=== PATIENT | male | born 1970 | race African-American/Black ===

== ENCOUNTER 2021-12-22 13:41 | Inpatient (IN) | payer MEDICAID ==
[~2021-12-22] VITALS: Ht 185.4 cm; Wt 78.9 kg
--- NOTE | 2021-12-22 14:35 | NUR ---
PATIENT A/O X4. EQUAL CHEST EXPANSION WITH SOB NOTED. CURRENTLY ON RA WITH O2 SAT OF 97%. PATIENT DENIES CHEST PAIN. COMPLAINT OF BILATERAL LOWER EXT SWELLING. CALM AND COOPERATIVE AT THIS TIME. WILL CONTINUE TO MONITOR
[2021-12-22 15:53] LABS: BASOPHILS # (AUTO) 0.1 K/uL (0.0-0.2); BASOPHILS % (AUTO) 0.6 % (0.0-2.0); EOSINOPHILS % (AUTO) 1.3 % (0.0-6.0); HEMATOCRIT 46 % (39-51); HEMOGLOBIN 14.2 g/dL (13.5-17.5); LYMPHOCYTES # (AUTO) 1.6 K/uL (0.8-4.8); LYMPHOCYTES % (AUTO) 17.1 % (20.0-44.0); MEAN CORPUSCULAR HGB CONC 31 g/dl (31.0-36.0); MEAN CORPUSCULAR VOLUME 95 fL (80-96); MONOCYTES # (AUTO) 0.5 K/uL (0.1-1.30); MONOCYTES % (AUTO) 5.4 % (2.0-12.0); NEUTROPHILS % (AUTO) 75.6 % (43.0-81.0); PLATELET COUNT (AUTO) 272 K/uL (150-450); RED BLOOD CELL COUNT(AUTO) 4.83 MIL/uL (4.5-6.0); WHITE BLOOD COUNT (AUTO) 9.3 K/uL (4.3-11.0)
[2021-12-22 16:02] LABS: CALCIUM, SERUM 9.4 mg/dL (8.5-10.1); CREATININE 1.8 mg/dL (0.6-1.3); POTASSIUM 4.9 mmol/L (3.5-5.1)
[2021-12-22 16:15] LABS: ALBUMIN 3.2 g/dL (3.4-5.0); BILIRUBIN,DIRECT 0.2 mg/dL (0.0-0.2); BILIRUBIN,TOTAL 0.8 mg/dL (0.2-1.0); TOTAL PROTEIN, SERUM 7.2 g/dL (6.4-8.2)
[2021-12-22] MEDS ORDERED: FUROSEMIDE 40 MG/4 ML VIAL IV ONE (16:30)
--- NOTE | 2021-12-22 16:43 | NUR ---
IV ESTABLISHED R UPPER ARM 20G AND CONVERTED TO SALINE LOCK.
[2021-12-22] MEDS ORDERED: FUROSEMIDE 20 MG/2 ML VIAL ONE (16:45)
[2021-12-22] MEDS ORDERED: FUROSEMIDE 40 MG/4 ML VIAL ONE ×2 (16:45→16:48)
--- NOTE | 2021-12-22 16:55 | NUR ---
MEDICATED PER ERMD ORDER, PT SOTERO WELL.
[2021-12-22 17:03] LABS: BILIRUBIN,URINE NEGATIVE (NEGATIVE); COLOR,URINE YELLOW (YELLOW); LEUKOCYTE ESTERASE ,URINE NEGATIVE (NEGATIVE); NITRITE, URINE NEGATIVE (NEGATIVE); PH,URINE 6.5 (5.0-8.0); PROTEIN,URINE 100 mg/dl (NEGATIVE); UGLUCOSE NEGATIVE (NEGATIVE)
[2021-12-22] MEDS ORDERED: HYDROCODONE/APAP 5/325MG TABLET PO PRN (17:30)
[2021-12-22] MEDS ORDERED: TEMAZEPAM 15 MG CAPSULE PO PRN (17:30)
[2021-12-22] MEDS ORDERED: MORPHINE SULFATE INJ 2 MG/ML DISP.SYRIN IV PRN (17:30)
[2021-12-22] MEDS ORDERED: Z GUARD REMEDY 4 OZ OINT TP PRN (17:30)
[2021-12-22] MEDS ORDERED: ACETAMINOPHEN 325 MG TABLET PO PRN (17:30)
[2021-12-22] MEDS ORDERED: MAG HYDROX/AL HYDROX/SIMETH 30 ML UDC PO PRN (17:30)
[2021-12-22] MEDS ORDERED: ONDANSETRON HCL/PF 4 MG/2 ML VIAL IVP PRN (17:30)
[2021-12-22] MEDS ORDERED: MAGNESIUM HYDROXIDE 30 ML UDC PO PRN (17:30)
--- NOTE | 2021-12-22 17:40 | NUR ---
CALLED NURSING SUP REGARDING PT BED
[2021-12-22] MEDS ORDERED: LORAZEPAM 1 MG TABLET PO PRN (18:00)
--- NOTE | 2021-12-22 18:30 | NUR ---
1,800 ML URINE OUTPUT
--- NOTE | 2021-12-22 18:41 | NUR ---
Preliminary echo findings showed EF 10-15%, large pleural effusion, trace pericardial effusion, possible vegetation on anterior MV leaflet. Initial results relayed to Balbir Reynoso and Dr. Bishnu Patel.
[2021-12-22] MEDS ORDERED: VANCOMYCIN 1.25 GM in IV D5W 250 ML IV ONE (19:00)
[2021-12-22 19:44] LABS: BACTERIA,URINE FEW /HPF (None Seen); RBC,URINE 0-2 /HPF (0-2); SQUAMOUS EPITHELIAL CELL,UR RARE /HPF (None Seen); WBC,URINE 0-2 /HPF (0-3)
--- NOTE | 2021-12-22 19:44 | NUR ---
covid swab sent
[2021-12-22 19:45] LABS: CALCIUM CARBONATE CRYSTALS,UR None Seen /HPF (None Seen); CALCIUM OXALATE CRYSTALS,UR MOD /HPF (None Seen); CALCIUM PHOSPHATE CRYSTALS,UR None Seen /HPF (None Seen); TRICHOMONAS,URINE None Seen /HPF (None Seen); YEAST,URINE None Seen /HPF (None Seen)
[2021-12-22] MEDS ORDERED: VANCOMYCIN 1 GM VIAL ONE (20:18)
--- NOTE | 2021-12-22 20:28 | NUR ---
REPORT GIVEN TO JORDAN WOO
--- NOTE | 2021-12-22 20:39 | NUR ---
transferred to 104 under ACLS
[2021-12-22 20:45] VITALS: BP 149/97
--- NOTE | 2021-12-22 20:45 | NUR ---
BULK CLERK NOTE ADMIT 51 YEAR OLD MALE TO CRISTIAN UNIT AT ROOM 104 ON TELEMETRY MONITORING,ADMISSION DIAGNOSIS IS CHF EXACERBATION.ALERT ORIENTED X4 VERBALLY RESPONSIVE ON ROOM AIR O2:96%,AMBULATORY,BILATERAL LOWER EXTREMITIES/SCROTUM/FEET EDEMA AND SKIN REDNESS,IV SITE IS ON RIGHT UPPER ARM INTACT PATENT,SAFETY MEASURE IMPLEMENT,BED IN LOW POSITION AND LOCKED,CALL LIGHT WITHIN REACH,HEAD OF THE BED ELEVATED CONTINUE TO MONITOR.
[2021-12-22] MEDS: FUROSEMIDE 40 MG/4 ML VIAL IV SCH (21:19)
[2021-12-22] MEDS: HEPARIN SODIUM, PORCINE 5000 UNITS/1 ML VIAL SQ SCH (21:21)
[2021-12-23] VITALS: BP 160/109
[2021-12-23 04:00] VITALS: BP 145/99
[2021-12-23 06:31] LABS: BASOPHILS # (AUTO) 0.1 K/uL (0.0-0.2); BASOPHILS % (AUTO) 0.6 % (0.0-2.0); EOSINOPHILS % (AUTO) 2.7 % (0.0-6.0); HEMATOCRIT 39 % (39-51); HEMOGLOBIN 12.2 g/dL (13.5-17.5); LYMPHOCYTES # (AUTO) 1.6 K/uL (0.8-4.8); LYMPHOCYTES % (AUTO) 16.2 % (20.0-44.0); MEAN CORPUSCULAR HGB CONC 31 g/dl (31.0-36.0); MEAN CORPUSCULAR VOLUME 93 fL (80-96); MONOCYTES # (AUTO) 0.6 K/uL (0.1-1.30); MONOCYTES % (AUTO) 6.2 % (2.0-12.0); NEUTROPHILS # (AUTO) 7.2 K/uL (1.8-8.9); NEUTROPHILS % (AUTO) 74.3 % (43.0-81.0); PLATELET COUNT (AUTO) 240 K/uL (150-450); RED BLOOD CELL COUNT(AUTO) 4.17 MIL/uL (4.5-6.0); WHITE BLOOD COUNT (AUTO) 9.8 K/uL (4.3-11.0)
--- NOTE | 2021-12-23 06:45 | NUR ---
RN NOTE PATIENT REMAINS ON ALERT ORIENTED X4 VERBALLY RESPONSIVE ON ROOM AIR NO SOB NOT ACUTE DISTRESS NOTED ALL DUE MEDS GIVEN MD ORDERED ENDORSE NEXT COMING SHIFT FOR CONTINUATION OF CARE.
[2021-12-23] MEDS: VANCOMYCIN 0.75 GM in IV D5W 250 ML IV SCH ×2 (07:03→19:08)
--- NOTE | 2021-12-23 07:47 | NUR ---
RN OPENING NOTE PATIENT RECEIVED IN BED, AO x 4, ABLE TO RESPONDS ALL STIMULI. IN NO ACUTE DISTRESS NOTED. RESPIRATORY EVEN AND UNLABORED ON ROOM. SKIN IS WARM TO TOUCH, KEEP CLEAN/DRY, INTACT IV SITE. KEPT ELEVATED HOB FOR ENSURE AIRWAY AND ASPIRATION PRECAUTION, ALSO LOWEST POSITION OF THE BED, COVERED S/R UP X 2, ALL SAFETY PRECAUTION APPLIED. CALL LIGHT WITHIN REACH, WILL CONTINUE TO MONITOR.
[2021-12-23 08:00] VITALS: BP 139/99
[2021-12-23] MEDS: PANTOPRAZOLE 40 MG TABLET.DR PO SCH (08:09)
[2021-12-23] MEDS: FUROSEMIDE 40 MG/4 ML VIAL IV SCH ×4 (08:09→16:48)
[2021-12-23] MEDS: HEPARIN SODIUM, PORCINE 5000 UNITS/1 ML VIAL SQ SCH ×2 (08:10→20:18)
[2021-12-23 08:42] LABS: THYROID STIMULATING HORMONE 0.625 uIU/mL (0.358-3.74)
[2021-12-23 08:55] LABS: CALCIUM, SERUM 8.8 mg/dL (8.5-10.1); CREATININE 2.1 mg/dL (0.6-1.3); PHOSPHORUS 4.4 mg/dL (2.5-4.9); POTASSIUM 3.9 mmol/L (3.5-5.1)
[2021-12-23 12:00] VITALS: BP 151/105
--- NOTE | 2021-12-23 12:40 | NUR ---
"SS Consult: SS consult for homelessness and drug abuse. Pt. Is a 51-year-old Black male who demonstrates adequate insight to the reason for hospitalization. Per pt., he presented himself to hospital for concern for bilateral lower extremity swelling. Pt. was oriented x3, alert, and cooperative. During interview, pt. was capable of following directions, made appropriate eye-contact, and appeared unkempt. Pt.s speech was at a normal rate and pt.s mood was elevated. Pt. reported no hx of mental health, suicidal ideation, or homicidal ideation. Pt. denies auditory hallucinations, visual hallucinations, paranoia, or delusions. SW explored pt.s living situation. Per pt., he has been homeless for a year, he has been to a fpc located [place], [place] about a year ago. Pt. stated that he has not been to a fpc since and just been on the streets. SW explored pt.s substance abuse. Pt. stated that his drug of choice is cocaine. He has been to outpatient rehabs but only lasted for 2 weeks. SW offered and suggested rehab, pt. denied. Plan: SW provided available fpc and rehab resources and pt. accepted. Pt. signed homeless waiver and its placed in chart. Pt. stated he wants to go to a fpc upon discharge. SW provided fpc and directions to a fpc. Resources Provided: Winter Shelters: SPA 2 | [facility] Address: Confidential (call for location ) Population Served: Coed # of Beds: 57 SPA 4 | [facility] Provider: Home at Last Address: [address] [place] [address] # of Beds: 49 Population Served: Coed [facility] 6 | [facility] Provider: Home at Last Address: [address] [place], [place] [id number] # of Beds: 49 Population Served: [facility] Yair [facility] Provider: Maryanne Thomas [place] Address: [address] [place] [address] # of Beds: 20 Population Served: Women [facility] Facility Provider: Home at Last Address: [address] [facility] [address] # of Beds: 30 Population Served: Women SPA 8 | [facility] Provider: [facility] [place] Address: [address] [facility] [address] # of Beds: 65 Population Served: [facility] Year-round shelters: [place] [address] [place] [address] ; [facility] [place] [address] [facility] [place] [address]; [facility] Oscrtux[address] [facility] [address] Winter Shelters: Chema Gallagher Provider: [facility] Address: [address] [place], [address] # of Beds: 47 Population Served: Coed [facility] 6 | [facility] Jessica Guzman [place] Provider: Home at Last Address: [address], [address] # of Beds: 66 Population Served: [facility] [place] Provider: First to Serve Address: [address] [facility], [address] # of Beds: 56 Population Served: [facility] [place] Provider: /Ms. Casper[facility] House Address: [address] [facility], [address] # of Beds: 49 Population Served: [facility] 8 | [facility] Provider: First to Serve Address: [address] [facility], [address] # of Beds: 37 Population Served: [facility] Hygiene: [facility]: [address] [address] ; [place] [facility] [address] [facility] ; [facility] [address] . Food Resources: [place] [facility] at [facility]- [address] [place]; Meet Each Need with Dignity ([facility]) [address] [place] [address]; [facility] Food Pantry [address] [facility]; [facility] [address] [facility]. Mental Health resources provided: [facility] [address] [place], [place] [address] ; [facility] [address] [facility] [address], [place], [place] [id number] ; [facility] [address] [facility] [place], [place] [phone] ; [facility] [address] [place], [place] [address] Healthcare Clinics: [facility] [address] [facility], [address] [place]. [place] ; [facility] [address] [facility] [address] [place] [address]; [facility] [place] [address] [place] [address] [phone] Counseling--Outpatient [facility] [address] [facility], [place] [address] (Specializes in in-depth psychotherapy for emotional distress: anxiety, depression, interpersonal conflicts, life transitions, childhood abuse) [facility] [address] [place] [address] (Assist with solving problem marital difficulties, separation & divorce, aging parents, & grief, chronic & terminal illness) [facility] [address] [place] [address] (Deal with loss & grief, anxiety, marital difficulties) Homebound/Mental Health Services [address] [facility], [address] [place], [place] [address] (Provide in-home mental services to people who are incapable of leaving their homes) [facility] for Needs of the Elderly Senior Service/Resource Center [address] [place] [address] [facility] [address] [place] [address] PSYCHIATRIC OUTPATIENT SERVICES [facility] Partial Hospitalization and Intensive Outpatient Program (Managed Care and [place] Only)[address] [facility] [place] [phone] [facility] Partial Hospitalization and Outpatient [address] [place], [place] [phone] [facility] Mental Health [place] Nix[address] [facility]. [address] [place], [place] [phone] [facility] Partial Hospitalization and Outpatient [id number] [facility] [place], [phone] Substance Abuse resources provided included: [facility] Substance Abuse Self-Helpline ([facility]) ; CRI -HELP [address] [facility]. [place] [id number] ; [facility] [address] [facility] [address] ; [place] [facility] Rehabilitation Program [address] [address] ; [facility] [address] [facility] [phone] ; [facility] 4940 [facility] [address] ; [facility] [address] [facility] [address] ; [facility] Substance Abuse Helpline([facility])-[facility] ; [facility] ; [facility]; [facility]; [facility] [place]; [facility] Nate smith; [facility] [place]; [place]; [facility] [place]; [facility], [facility]. [place]; Alcoholics Anonymous -sfv; Cf-Tuzc-Qqozoxo ; Marijuana Anonymous -SFV; Narcotics Anonymous www.na.org;"
[2021-12-23 16:00] VITALS: BP 149/109
--- NOTE | 2021-12-23 16:18 | NUR ---
PATIENT NOTICED DBP OVER 100, HR 115. LATEST BP: 149/109. MD MADE AWARE, NNO AT THIS TIME DUE TO PATIENT TAKES LASIX. WILL CONTINUE TO MONITOR.
--- NOTE | 2021-12-23 18:24 | NUR ---
RN CLOSE NOTE PATIENT IN BED, IN NO ACUTE DISTRESS OBSERVED. RESPIRATION EVEN AND UNLABORED ON ROOM AIR. SKIN IS WARM TO TOUCH KEEP CLEAN//DRY, INTACT IV SITE. KEPT ELEVATED HOB FOR ENSURE AIRWAY AND ASPIRATION PRECAUTION. ALSO LOWEST POSITION OF THE BED FOR SAFETY. CALL LIGHT WITHIN REACH, WILL ENDORSE DIRECTOR CHILD.
--- NOTE | 2021-12-23 19:10 | NUR ---
RN NOTE RECEIVED PATIENT IN BED RESTING ALERT ORIENTED X3 VERBALLY RESPONSIVE ON ROOM AIR O2:97% IV SITE IS ON RIGHT UPPER ARM INTACT PATENT AMBULATORY CONTIENT BOWEL/BLADER.SAFETY MEASURE IMPLEMENT BED IN LOW POSITION AND LOCKED,CALL LIGHT WITHIN REACH,HEAD OF THE BED ELEVATED CONTINUE TO MONITOR.
[2021-12-23 20:00] VITALS: BP 141/95
[2021-12-24] VITALS: BP 149/99
[2021-12-24 04:00] VITALS: BP 144/98
[2021-12-24 06:32] LABS: BASOPHILS % (AUTO) 0.3 % (0.0-2.0); HEMATOCRIT 42 % (39-51); HEMOGLOBIN 13.4 g/dL (13.5-17.5); LYMPHOCYTES # (AUTO) 1.2 K/uL (0.8-4.8); LYMPHOCYTES % (AUTO) 10.3 % (20.0-44.0); MEAN CORPUSCULAR HGB CONC 32 g/dl (31.0-36.0); MEAN CORPUSCULAR VOLUME 92 fL (80-96); MONOCYTES # (AUTO) 0.9 K/uL (0.1-1.30); MONOCYTES % (AUTO) 7.7 % (2.0-12.0); NEUTROPHILS # (AUTO) 9.1 K/uL (1.8-8.9); NEUTROPHILS % (AUTO) 80.7 % (43.0-81.0); PLATELET COUNT (AUTO) 252 K/uL (150-450); RED BLOOD CELL COUNT(AUTO) 4.58 MIL/uL (4.5-6.0); WHITE BLOOD COUNT (AUTO) 11.3 K/uL (4.3-11.0)
[2021-12-24 06:50] LABS: ALBUMIN 2.5 g/dL (3.4-5.0); BILIRUBIN,TOTAL 1.1 mg/dL (0.2-1.0); CALCIUM, SERUM 8.8 mg/dL (8.5-10.1); CREATININE 1.8 mg/dL (0.6-1.3); MAGNESIUM 1.7 mg/dL (1.8-2.4); PHOSPHORUS 4.2 mg/dL (2.5-4.9); POTASSIUM 3.4 mmol/L (3.5-5.1); TOTAL PROTEIN, SERUM 6.1 g/dL (6.4-8.2)
--- NOTE | 2021-12-24 06:52 | NUR ---
RN NOTE PATIENT REMAINS ALERT ORIENTED X3 VERBALLY RESPONSIVE ON ROOM AIR NO SOB NOT ACUTE DISTRESS NOTED,ALL DUE MEDS GIVEN MD ORDERED,KEPT CALL LIGHT WITHIN REACH ENDORSE NEXT COMING SHIFT FOR CONTINUATION OF CARE
[2021-12-24] MEDS: VANCOMYCIN 0.75 GM in IV D5W 250 ML IV SCH ×2 (07:21→19:11)
--- NOTE | 2021-12-24 07:28 | NUR ---
ms rn received on bed awake,alert, oriented x3,not in any form of distress, respirations even and unlabored,no sob noted, bilateral lungs have ronchi,abdomen soft,positive bowel sounds,denies pain at this time,will monitor patient's condition.
[2021-12-24 08:00] VITALS: BP 141/102
--- NOTE | 2021-12-24 08:20 | NUR ---
ms domingo breakfast served,due meds given,tolerated well.
[2021-12-24] MEDS: PANTOPRAZOLE 40 MG TABLET.DR PO SCH (09:21)
[2021-12-24] MEDS: SPIRONOLACTONE 25 MG TABLET PO SCH (09:22)
[2021-12-24] MEDS: CARVEDILOL 3.125 MG TABLET PO SCH ×2 (09:22→21:02)
[2021-12-24] MEDS: HEPARIN SODIUM, PORCINE 5000 UNITS/1 ML VIAL SQ SCH ×2 (09:24→21:03)
[2021-12-24] MEDS ORDERED: MAGNESIUM OXIDE 400 MG TABLET PO ONE (10:00)
[2021-12-24] MEDS ORDERED: POTASSIUM CHLORIDE 10 MEQ TABLET.SA PO ONE (11:00)
--- NOTE | 2021-12-24 11:30 | NUR ---
ms domingo was seen by brenda lyn w/ orders made and carried out.
[2021-12-24 12:00] VITALS: BP 147/103
--- NOTE | 2021-12-24 12:19 | NUR ---
ROSA called [facility] ext [phone] and left voicemail requesting assistance with applying for Medicare Benefits. ROSA notified Dl DUPREE.
[2021-12-24 16:00] VITALS: BP 149/95
--- NOTE | 2021-12-24 18:19 | NUR ---
ms rn on bed, no distress noted,all needs attended.
--- NOTE | 2021-12-24 19:17 | NUR ---
RN OPENING NOTES RECEIVED PT IN BED, AWAKE, WATCHING TV. AOx3, ABLE TO MAKE NEEDS KNOWN. ON RA AND TOLERATING WELL. NO SOB NOTED. NO S/SX OF RESPIRATORY DISTRESS NOTED. TELE MONITOR DETECTS SINUS RHYTHM AND SINUS TACHYCARDIA. IV ACCESS IN TERRI #20. IV IS INTACT, PATENT, AND FLUSHING WELL. SAFETY PRECAUTIONS IN PLACE: BED IN LOWEST, LOCKED POSITION, SIDERAILS UPx2, AND BRAKES ON. TABLE AND CALL LIGHT WITHIN REACH. WILL CONTINUE TO MONITOR.
[2021-12-24 20:00] VITALS: BP 149/113
[2021-12-25] VITALS: BP 144/97
[2021-12-25 04:00] VITALS: BP 142/108
[2021-12-25] MEDS: VANCOMYCIN 0.75 GM in IV D5W 250 ML IV SCH (06:23)
--- NOTE | 2021-12-25 06:36 | NUR ---
RN CLOSING NOTES PT IN BED, ASLEEP, OPENS EYES TO VERBAL STIMULI. AOx3, ABLE TO MAKE NEEDS KNOWN. ON 2LPM VIA NC AND TOLERATING WELL. NO SOB NOTED. NO S/SX OF RESPIRATORY DISTRESS NOTED. TELE MONITOR DETECTS SINUS TACHYCARDIA WITH RATE IN 100s. IV ACCESS IN TERRI #20. IV IS INTACT, PATENT, AND FLUSHING WELL. ALL NEEDS MET. PT KEPT CLEAN AND DRY. SAFETY PRECAUTIONS IN PLACE: BED IN LOWEST, LOCKED POSITION, SIDERAILS UPx2, AND BRAKES ON. TABLE AND CALL LIGHT WITHIN REACH. WILL ENDORSE TO ONCOMING SHIFT FOR FRIDA.
[2021-12-25 07:02] LABS: CALCIUM, SERUM 8.3 mg/dL (8.5-10.1); CREATININE 1.7 mg/dL (0.6-1.3); POTASSIUM 3.8 mmol/L (3.5-5.1)
--- NOTE | 2021-12-25 07:56 | NUR ---
TELE/RN OPENING NOTES RECEIVED PT IN BED, A/O X3, ABLE TO MAKE NEEDS KNOWN. ON 2LPM VIA NC AND TOLERATING WELL. NO SOB NOTED. NO S/SX OF RESPIRATORY DISTRESS NOTED. TELE MONITOR DETECTS SINUS TACHYCARDIA WITH RATE IN 100s. IV ACCESS IN TERRI #20. IV IS INTACT, PATENT, AND FLUSHING WELL. ALL NEEDS MET. PT KEPT CLEAN AND DRY. SAFETY PRECAUTIONS IN PLACED: BED IN LOWEST, LOCKED POSITION, SIDE RAILS UPx2, AND BRAKES ON. TABLE AND CALL LIGHT WITHIN REACH. WILL CONTINUE WITH THE PLAN OF CARE.
[2021-12-25 08:00] VITALS: BP 136/98
[2021-12-25] MEDS: PANTOPRAZOLE 40 MG TABLET.DR PO SCH (08:23)
[2021-12-25] MEDS: HEPARIN SODIUM, PORCINE 5000 UNITS/1 ML VIAL SQ SCH ×2 (09:13→21:53)
[2021-12-25] MEDS: SPIRONOLACTONE 25 MG TABLET PO SCH (09:14)
[2021-12-25] MEDS: CARVEDILOL 3.125 MG TABLET PO SCH ×2 (09:14→21:51)
[2021-12-25] MEDS: POTASSIUM CHLORIDE 20 MEQ TAB.PRT.SR PO SCH ×3 (09:14→11:03)
[2021-12-25] MEDS: FUROSEMIDE 40 MG/4 ML VIAL IV SCH ×3 (09:17→17:09)
--- NOTE | 2021-12-25 10:15 | NUR ---
ROSA called [facility] ext [phone] and left voicemail for [employer] confirming that we would still need to apply for Medicare for this patient as Dr. Collins stated that Medicare is needed. ROSA received a call back yesterday from [employer] stating that the pt. should have Full Scope [employer] benefits in about 3 days time and if this would be sufficient. ROSA called Dl DUPREE to ask and no answer or voicemail options.
[2021-12-25 12:06] VITALS: BP 134/88
--- NOTE | 2021-12-25 13:31 | NUR ---
PATIENT PULLED OUT HIS IV ACCESS ON RIGHT UPPER ARM. RN ABLE TO ESTABLISH NEW IV ACCESS ON LEFT AC #20G.
[2021-12-25 16:19] VITALS: BP 134/96
[2021-12-25] MEDS: VANCOMYCIN 1 GM in IV D5W 250 ML IV SCH (17:09)
--- NOTE | 2021-12-25 19:23 | NUR ---
TELE/RN CLOSING NOTES PT IN BED, A/O X3, ABLE TO MAKE NEEDS KNOWN. ON 2LPM VIA NC AND TOLERATING WELL. NO SOB NOTED. NO S/SX OF RESPIRATORY DISTRESS NOTED. TELE MONITOR DETECTS SINUS TACHYCARDIA WITH RATE IN 100s. IV ACCESS IN LEFT AC #20G IS INTACT, PATENT, AND FLUSHING WELL. ALL NEEDS MET. PT KEPT CLEAN AND DRY. SAFETY PRECAUTIONS IN PLACED: BED IN LOWEST, LOCKED POSITION, SIDE RAILS UPx2, AND BRAKES ON. TABLE AND CALL LIGHT WITHIN REACH. WILL ENDORSE TO THE NEXT SHIFT FOR FRIDA.
--- NOTE | 2021-12-25 19:30 | NUR ---
TELE/RN OPENING NOTES RECEIVED PT IN BED, AWAKE, A/O X3, VERBALLY RESPONSIVE TO RN QUESTIONS. PT ON 2LPM VIA NC AND TOLERATING WELL. NO SOB NOTED. NO S/SX OF ACUTE DISTRESS NOTED. ON TELE MONITORING REGISTERING SINUS TACHYCARDIA WITH RATE IN 100s. NOTED IV ACCESS IN LAC #20G. IV IS INTACT, PATENT, AND FLUSHING WELL. NO INFILTRATION NOTED AT SITE. PT ON CARDIAC DIET. SAFETY MEASURES PROVIDED: BED IN LOWEST POSITION, LOCKED. SIDE RAILS UP X 2. BED ALARM ON. TABLE AND CALL LIGHT WITHIN REACH. WILL CONTINUE TO MONITOR.
[2021-12-25 20:00] VITALS: BP 122/72
--- NOTE | 2021-12-25 21:15 | NUR ---
RN NOTES PT'S FAMILY VISITED PT (BROTHER AND SISTER IN LAW). PT ALSO WANTS TO NOMINATE HIS BROTHER AND MOM PRIMARY ASSOCIATE ACCOUNT MANAGER AND NEXT OF KIN ON HIS BEHALF TO GIVE UPDATES AND INFO. PAZ PARRA (BROTHER) [phone] GISELL ELOISE (MOM) [phone] RN ACKNOWLEDGED. WILL SEND INFO TO ADMITTING TO HAVE FACESHEET UPDATED. PT ALSO SAID WE CAN RELEASE INFO AND UPDATE TO HIS SISTER IN LAW , LEIGH ANN PARRA [phone]. RN ACNOWLEDGED. ALL CONTACT INFO SENT TO ADMITTING. SCOREBOARD OPERATOR MADE AWARE.
[2021-12-25] MEDS ORDERED: CEFTRIAXONE 1 G VIAL ONE (21:44)
[2021-12-25] MEDS: CEFTRIAXONE 2 G in IV D5W 100 ML IV SCH (21:45)
[2021-12-26] VITALS: BP 122/84
[2021-12-26 04:00] VITALS: BP 128/78
[2021-12-26] MEDS: VANCOMYCIN 1 GM in IV D5W 250 ML IV SCH ×2 (06:09→18:00)
[2021-12-26 06:50] LABS: ALBUMIN 2.5 g/dL (3.4-5.0); BILIRUBIN,TOTAL 0.5 mg/dL (0.2-1.0); CREATININE 1.7 mg/dL (0.6-1.3); MAGNESIUM 1.9 mg/dL (1.8-2.4); PHOSPHORUS 4.4 mg/dL (2.5-4.9); POTASSIUM 4.4 mmol/L (3.5-5.1); TOTAL PROTEIN, SERUM 6.5 g/dL (6.4-8.2)
--- NOTE | 2021-12-26 07:21 | NUR ---
RN CLOSING NOTES NO SIGNIFICANT CHANGES THROUGHOUT THE SHIFT. PT IS A/O X 4. PT HAS LAC #20G. ON NC 2L, TOLERATING WELL WITH O2 SAT OF 100%. NO SOB NOTED. NO S/SX OF ACUTE DISTRESS NOTED. ALL DUE MEDS GIVEN ORDERED. ALL NEEDS ATTENDED TO. ALL SAFETY MEASURES IMPLEMENTED. BED IN LOWEST POSITION, LOCKED IN PLACE. CALL LIGHT WITHIN REACH. WILL ENDORSE TO AM SHIFT FOR FRIDA.
--- NOTE | 2021-12-26 07:30 | NUR ---
TELE/RN OPENING NOTES RECEIVED PT IN BED, AWAKE, A/O X3, ABLE TO MAKE NEEDS KNOWN. PT ON 2LPM VIA NC AND TOLERATING WELL. NO SOB NOTED. NO S/SX OF ACUTE DISTRESS NOTED. ON TELE MONITORING READING SHOWING SINUS TACHYCARDIA WITH RATE IN LOW 100s. NOTED IV ACCESS IN LAC #20G. IV IS INTACT, PATENT, AND FLUSHING WELL. NO INFILTRATION NOTED AT SITE. SAFETY MEASURES PROVIDED: BED IN LOWEST POSITION, LOCKED. SIDE RAILS UP X 2. BED ALARM ON. TABLE AND CALL LIGHT WITHIN REACH. WILL CONTINUE TO MONITOR ACCORDINGLY.
[2021-12-26] MEDS: PANTOPRAZOLE 40 MG TABLET.DR PO SCH (07:42)
[2021-12-26 08:00] VITALS: BP 126/89
[2021-12-26] MEDS: SPIRONOLACTONE 25 MG TABLET PO SCH ×2 (08:32→08:37)
[2021-12-26] MEDS: HEPARIN SODIUM, PORCINE 5000 UNITS/1 ML VIAL SQ SCH ×3 (08:33→21:58)
[2021-12-26] MEDS: CARVEDILOL 3.125 MG TABLET PO SCH ×3 (08:33→22:02)
--- NOTE | 2021-12-26 08:56 | NUR ---
RN NOTES PATIENT REFUSED MORNING MEDICATIONS. RISK EXPLAINED X 3. STILL REFUSED.
--- NOTE | 2021-12-26 09:56 | NUR ---
RN NOTES IV ACCESS DISLODGED. PATIENT REFUSED IV REINSERTION. RISK EXPLAINED SEVERAL TIMES. PATIENT STILL REFUSED. KURTIS COUCH AWARE.
[2021-12-26 12:00] VITALS: BP 128/92
--- NOTE | 2021-12-26 12:05 | NUR ---
RN NOTES JORDAN CHANEL BROUGHT PATIENT'S LIFE VEST. SHE DISCUSSED AND ORIENTED PATIENT ON HOW TO USE AND THE IMPORTANCE OF WEARING IT ALL THE TIME ONCE DISCHARGE.
--- NOTE | 2021-12-26 12:10 | NUR ---
RN NOTES REINSERTED AN IV ACCESS ON PATIENT'S LEFT WRIST USING IV CATHETER G#20. PATENT AND FLUSHES WELL.
[2021-12-26 16:00] VITALS: BP 122/80
--- NOTE | 2021-12-26 18:55 | NUR ---
TELE/RN CLOSING NOTES PT IN BED, AWAKE, A/O X3, ABLE TO MAKE NEEDS KNOWN. PT ON 2LPM VIA NC AND TOLERATING WELL. NO SOB NOTED. NO S/SX OF ACUTE DISTRESS NOTED. ON TELE MONITORING READING SHOWING SINUS TACHYCARDIA WITH RATE IN LOW 100s. NOTED IV ACCESS IN LEFT WRIST #20G. IV IS INTACT, PATENT, AND FLUSHING WELL. NO INFILTRATION NOTED AT SITE. SAFETY MEASURES PROVIDED: BED IN LOWEST POSITION, LOCKED. SIDE RAILS UP X 2. BED ALARM ON. TABLE AND CALL LIGHT WITHIN REACH. AWAITING VANCO TROUGH RESULT. ALL NEEDS ATTENDED AND MET. WILL ENDORSE TO ONCOMING SHIFT FOR FRIDA.
--- NOTE | 2021-12-26 19:30 | NUR ---
television program director notes vanco dose at 1800hrs not given d/t vanco trough is 23
[2021-12-26 20:00] VITALS: BP 127/91
--- NOTE | 2021-12-26 20:00 | NUR ---
TELE/RN OPENING NOTES RECEIVED PT IN BED, AWAKE, A/O X3, ABLE TO MAKE NEEDS KNOWN. PT ON 2LPM VIA NC AND TOLERATING WELL. NO SOB NOTED. NO S/SX OF ACUTE DISTRESS NOTED. ON TELE MONITORING SINUS TACHYCARDIA WITH RATE 104s. NOTED IV ACCESS IN LAC #20G. IV IS INTACT, PATENT, AND FLUSHING WELL. NO INFILTRATION NOTED AT SITE. ALL DUE MEDS GIVEN ORDERED ALL NEEDS ANTICIPATED , CALL LIGHT WITHIN REACH .SAFETY MEASURES PROVIDED: BED IN LOWEST POSITION, LOCKED. SIDE RAILS UP X 2. BED ALARM ON. WILL CONTINUE TO MONITOR .
[2021-12-26] MEDS: CEFTRIAXONE 2 G in IV D5W 100 ML IV SCH (20:11)
[2021-12-27] VITALS: BP 130/87
[2021-12-27 04:00] VITALS: BP 128/83
--- NOTE | 2021-12-27 05:56 | NUR ---
telescope repairer notes vanco dose at 0600hrs not given d/t vanco trough is 23
[2021-12-27] MEDS: VANCOMYCIN 1 GM in IV D5W 250 ML IV SCH (05:57)
--- NOTE | 2021-12-27 07:01 | NUR ---
television mechanic notes pts remains in bed continue on nc at 2liters of 02 ,sating 95% no sob no distress noted .all needs attended too call light within reach , will endorse to rn day shift for continuity of care.
[2021-12-27 07:17] LABS: CALCIUM, SERUM 8.9 mg/dL (8.5-10.1); CREATININE 1.7 mg/dL (0.6-1.3)
--- NOTE | 2021-12-27 07:39 | NUR ---
RN OPENING NOTES RECEIVED PATIENT FROM OUTGOING NURSE FOR CONTINUITY OF CARE. PATIENT IN BED, AO X 3-4, IN NO S/SX OF ACUTE DISTRESS AT THIS TIME. ON 2 LITER NC, SATURATION AT 100%, SR ON THE MONITOR, IV SITE AT LEFT HAND 20G, PATENT AND FLUSHING WELL, NO S/S OF INFECTION OR INFILTRATION. SAFETY MEASURES IMPLEMENTED. HEAD OF BED ELEVATED. BED IS LOCKED, IN LOWEST POSITION AND SIDE RAILS UP. CALL LIGHT WITHIN REACH OF THE PATIENT. WILL CONTINUE TO MONITOR AND REASSESS FOR ANY CHANGES.
[2021-12-27 08:00] VITALS: BP 133/93
[2021-12-27] MEDS: CARVEDILOL 3.125 MG TABLET PO SCH ×2 (08:33→21:21)
[2021-12-27] MEDS: SPIRONOLACTONE 25 MG TABLET PO SCH (08:33)
[2021-12-27] MEDS: PANTOPRAZOLE 40 MG TABLET.DR PO SCH (08:34)
[2021-12-27] MEDS: HEPARIN SODIUM, PORCINE 5000 UNITS/1 ML VIAL SQ SCH ×2 (08:35→21:00)
[2021-12-27 09:02] LABS: POTASSIUM 4.5 mmol/L (3.5-5.1)
--- NOTE | 2021-12-27 09:34 | NUR ---
@ 0979 Patient refused Heparin injection and heparin already scanned and prepared. Heparin disposed. Called pharmacy @ 0991 and reported that Vancomycin trough was 23 yesterday and tow motor operator nurse did not administered and for day shift RN will wait for new lab for trough or the titrated Vanco.
[2021-12-27] MEDS: VANCOMYCIN 0.75 GM in IV D5W 250 ML IV SCH ×2 (11:19→23:06)
[2021-12-27 12:00] VITALS: BP 116/91
[2021-12-27 16:00] VITALS: BP 130/86
--- NOTE | 2021-12-27 18:59 | NUR ---
RN CLOSING NOTES NO SIGNIFICANT CHANGES THROUGHOUT THE SHIFT. PT IS A/O X 4. PT HAS LAC #20G. ON NC 2L, TOLERATING WELL NO SOB NOTED. NO S/SX OF ACUTE DISTRESS NOTED. ALL DUE MEDS GIVEN ORDERED. ALL NEEDS ATTENDED TO. ALL SAFETY MEASURES IMPLEMENTED. BED IN LOWEST POSITION, LOCKED IN PLACE. CALL LIGHT WITHIN REACH. WILL ENDORSE TO AM SHIFT FOR FRIDA
--- NOTE | 2021-12-27 19:35 | NUR ---
RN NOTE PT RECEIVED IN BED. PT IS ON 2L OF O2 VIA NC SHOWING NO S/SX OF RESP DISTRESS. BREATHING EVEN AND UNLABORED. PT IS ALERT/ORIENTED X4. ON CARDIAC/TELE MONITOR SHOWING NSR. ON CARDIAC DIET. IV ACCESS NOTED ON LEFT WRIST. LINE FLUSHED, PATENT, AND INTACT WITH NO SIGNS OF INFILTRATION. ALL SAFETY MEASURES IMPLEMENTED. CALL LIGHT WITHIN REACH. HOB ELEVATED. BED LOCKED AND IN LOWEST POSITION. SIDE RAILS UP, WILL CONTINUE TO MONITOR AND ASSESS FOR ANY CHANGES DURING SHIFT.
[2021-12-27 20:00] VITALS: BP 133/99
[2021-12-27] MEDS: CEFTRIAXONE 2 G in IV D5W 100 ML IV SCH (21:20)
--- NOTE | 2021-12-27 21:20 | NUR ---
RN NOTE PT REFUSED HEPARIN SQ. EXPLAINED RISKS/BENEFITS, BUT PT STILL REFUSED MEDICATION.
--- NOTE | 2021-12-27 23:01 | NUR ---
RN NOTE WOUND PICTURES TAKEN AND PLACED IN CHART. NO PICTURES TAKEN OF TESTICLES AND BILATERAL LOWER EXTREMITIES D/T NO SWELLING NOTED UPON ASSESSMENT.
[2021-12-28] VITALS: BP 122/85
[2021-12-28 04:00] VITALS: BP 137/93
--- NOTE | 2021-12-28 06:43 | NUR ---
RN NOTE NO CHANGES IN PT CONDITION DURING SHIFT. PT IS ON 2L OF O2 VIA NC SHOWING NO S/SX OF RESP DISTRESS. BREATHING EVEN AND UNLABORED. IV ACCESS NOTED ON LEFT WRIST. LINE FLUSHED, PATENT, AND INTACT WITH NO SIGNS OF INFILTRATION. ALL SAFETY MEASURES IMPLEMENTED. ALL DUE MEDS GIVEN ORDERED. PT KEPT CLEAN AND COMFORTABLE. HOB ELEVATED. CALL LIGHT WITHIN REACH. BED LOCKED AND IN LOWEST POSITION. SIDE RAILS UP. WILL ENDORSE TO MORNING SHIFT FOR FRIDA.
[2021-12-28 08:00] VITALS: BP 122/85
[2021-12-28] MEDS: HEPARIN SODIUM, PORCINE 5000 UNITS/1 ML VIAL SQ SCH ×2 (08:38→21:00)
[2021-12-28] MEDS: VALSARTAN 80 MG TABLET PO SCH (08:47)
[2021-12-28] MEDS: SPIRONOLACTONE 25 MG TABLET PO SCH (08:47)
[2021-12-28] MEDS: PANTOPRAZOLE 40 MG TABLET.DR PO SCH (08:47)
[2021-12-28] MEDS: CARVEDILOL 3.125 MG TABLET PO SCH ×3 (08:48→21:04)
--- NOTE | 2021-12-28 10:02 | NUR ---
RN NOTE PT REFUSING ALL BLOOD DRAWS. EXPLAINED RISKS/BENEFITS, BUT PT KEPT REFUSING. KURTIS COUCH AWARE.
--- NOTE | 2021-12-28 10:13 | NUR ---
RN NOTE SPOKE WITH TALIA COUCH REGARDING PT REFUSING BLOOD DRAWS AND VANCO TROUGH BEFORE NEXT VANCO DOSE. IZA SAID TO SPEAK WITH PHARMACY ON THEIR OPINION IF VANCO SHOULD BE ADMINISTERED. PER PHARMACY, OKAY TO GIVE THIS DOSE OF VANCOMYCIN. ORDER NOTED.
[2021-12-28] MEDS: VANCOMYCIN 0.75 GM in IV D5W 250 ML IV SCH ×2 (10:28→23:00)
[2021-12-28 12:00] VITALS: BP 123/93
--- NOTE | 2021-12-28 15:41 | NUR ---
RN NOTE REPORT GIVEN TO CARLOS FOR FRIDA.
[2021-12-28 16:00] VITALS: BP 119/88
--- NOTE | 2021-12-28 18:39 | NUR ---
RN NOTES PT STABLE , NO SIGNIFICANT CHANGES NOTED, WILL ENDORSE TO LUSTER REPAIRER NURSE FOR CONTINUITY OF CARE .
--- NOTE | 2021-12-28 19:30 | NUR ---
RN NOTE PATIENT IN BED RESTING. ALERT AND ORIENTED X3. ON O2 2L VIA NASAL CANNULA, O2 SAT 100%. NO S/S OF RESPIRATORY DISTRESS. IV ACCESS ON LEFT WRIST, PATENT AND INTACT. DENIES ANY PAIN OR DISCOMFORT AT THIS TIME. BED LOCKED AND IN LOWEST POSITION. CALL LIGHT WITHIN REACH. ALL NEEDS ANTICIPATED.
[2021-12-28 20:00] VITALS: BP 130/89
[2021-12-28] MEDS: CEFTRIAXONE 2 G in IV D5W 100 ML IV SCH ×2 (21:00→21:03)
--- NOTE | 2021-12-28 21:18 | NUR ---
RN NOTE OFFERED PATIENT'S EVENING MEDICATION, HEPARIN, IV CEFTRIAXONE, AND COREG. PATIENT REFUSED MEDICATION. EXPLAINED RISKS AND BENEFITS, STILL STRONGLY REFUSED AND STATED, "IM TIRED OF TAKING MEDICATION." PATIENT'S WISHES RESPECTED. SRINIVAS CHARGE NURSE AWARE.
--- NOTE | 2021-12-28 22:07 | NUR ---
RN NOTE INFORMED KATINA ARROYO DNP PATIENT REFUSED EVENING MEDICATION AND REFUSING TELE BOX, RECEIVED NEW ORDERS TO TRANSFER TO [facility]. SRINIVAS CHARGE NURSE AWARE.
--- NOTE | 2021-12-28 22:30 | NUR ---
RN NOTE PATIENT REFUSED IV VANCO DOSE. EXPLAINED RISKS AND BENEFITS. STILL STRONGLY REFUSED. CHARGE NURSE SRINIVAS AND KATINA ARROYO DNP AWARE.
[2021-12-29] VITALS: BP 118/78
[2021-12-29 04:00] VITALS: BP 118/79
--- NOTE | 2021-12-29 06:40 | NUR ---
RN NOTE PATIENT RESTING IN BED. V/S STABLE. NO SIGNIFICANT CHANGES. WILL ENDORSE TO DAY SHIFT FOR CONTINUITY OF CARE.
[2021-12-29] MEDS: PANTOPRAZOLE 40 MG TABLET.DR PO SCH (07:30)
--- NOTE | 2021-12-29 07:30 | NUR ---
RN OPENING NOTE PATIENT IN BED RESTING. ALERT AND ORIENTED X3. PT BREATHING EVEN AND UNLABORED ON RA. NO S/S OF RESPIRATORY DISTRESS. IV ACCESS ON LEFT WRIST, PATENT AND INTACT. DENIES ANY PAIN OR DISCOMFORT AT THIS TIME. BED LOCKED AND IN LOWEST POSITION. CALL LIGHT WITHIN REACH. WILL CONTINUE TO MONITOR.
[2021-12-29 08:00] VITALS: BP 116/83
[2021-12-29] MEDS: VALSARTAN 80 MG TABLET PO SCH (09:00)
[2021-12-29] MEDS: CARVEDILOL 3.125 MG TABLET PO SCH (09:00)
[2021-12-29] MEDS: HEPARIN SODIUM, PORCINE 5000 UNITS/1 ML VIAL SQ SCH (09:00)
[2021-12-29] MEDS: SPIRONOLACTONE 25 MG TABLET PO SCH (09:00)
--- NOTE | 2021-12-29 09:19 | NUR ---
RN NOTE PT REFUSED ALL AM MEDS. PT WAS TOLD THAT MEDS WERE FOR BP AND ANTICOAGULATION AND STILL REFUSED. PT ALSO REQUESTED EXTRA BREAKFAST BUT REFUSED MORE FOOD WHEN ASKED WHAT HE WANTED.
[2021-12-29] MEDS: VANCOMYCIN 0.75 GM in IV D5W 250 ML IV SCH (10:50)
--- NOTE | 2021-12-29 10:50 | NUR ---
RN NOTE PT REFUSED AM LABS SO NO VANCO TROUGH WAS DRAWN AND PT REFUSED RECEIVING AM DOSE OF VANCO VIA IV WELL.
[2021-12-29 12:00] VITALS: BP 114/80
[2021-12-29] MEDS ORDERED: CARV3.122 PO (15:34)
[2021-12-29] MEDS ORDERED: SPIR25TA6 PO (15:34)
[2021-12-29] MEDS ORDERED: Valsartan 80MG PO (15:34)
[2021-12-29 16:00] VITALS: BP 120/82
--- NOTE | 2021-12-29 16:52 | NUR ---
"Discharge Note: ROSA was notified by patient's nurse, Juanito that pt. is cleared for discharge. ROSA met with pt. at bedside. The pt. is alert & oriented x 4 and makes appropriate eye contact. Per pt. he would like to discharge to retirement. ROSA provided TAP card and bus route to [facility] [facility] [address]]. Pt. expressed understanding and is agreeable. Patient signed homeless waiver and got resources from Pamella LEE. resources provided include: Year-round shelters: [facility] [place] [address] [place], [place] [id number] ; [facility] [address] [place] [address]; [facility] [id number] [facility] [address] Winter Shelters: SPA 2 | [facility] Ch[facility]cProvider: [facility] Address: Confidential (call for location ) Population Served: Coed # of Beds: 57 SPA 4 | [facility] Provider: [facility] Last Address: [address] [place] [address] # of Beds: 49 Population Served: Coed SPA 6 | [facility] Provider: Home at Last Address: [address] [place] [id number] # of Beds: 49 Population Served: Coed [facility] Provider: Maryanne PRADO Address: [address] [facility] [address] # of Beds: 20 Population Served: Women [facility] Facility Provider: Home at Last Address: [address] [facility] [address] # of Beds: 30 Population Served: Women SPA 8 | [facility] Provider: Jim Address: [address] [facility] [address] # of Beds: 65 Population Served: Coed Hygiene: [facility]: [address] [address] [place] ; [facility] [address] [facility] [place] ; [facility] [address] [facility] . Food Resources: [facility]- [address] [employer] [place]; Meet Each Need with Dignity ([facility]) [address] [facility]; [facility] [address] [facility]; [facility] [address] [facility]. Mental Health resources provided: [facility] [address] [place], [place] [address] ; [facility] [address] [facility] [address], [place], [place] [id number] ; [facility] [address] [facility] [place], [place] [id number] ; [facility] [address] [place], [place] [id number] Healthcare Clinics: [facility] [address] [facility], [address] [place]. [place] ; [facility] [address] [facility] [address] [place] [address]; [facility] [address] [facility] [place] [phone] Counseling--Outpatient [facility] [address] [facility], [place] [address] (Specializes in in-depth psychotherapy for emotional distress: anxiety, depression, interpersonal conflicts, life transitions, childhood abuse) [facility] [address] [place] [address] (Assist with solving problem marital difficulties, separation & divorce, aging parents, & grief, chronic & terminal illness) [facility] [address] [place] [address] (Deal with loss & grief, anxiety, marital difficulties) Homebound/Mental Health Services [address] [facility], [address] [place] [address] (Provide in-home mental services to people who are incapable of leaving their homes) [facility] Elderly Senior Service/Resource Center [address] [place] [address] [facility] [address] [place] [address] PSYCHIATRIC OUTPATIENT SERVICES [facility] Partial Hospitalization and Intensive Outpatient Program (Managed Care and [place] Only)[address] [facility] [phone] [facility] Partial Hospitalization and Outpatient Socalgv88350 [facility] [address] [place], [place] [phone] Psychiatric hospital [facility] [place] Gca[address] [facility] [address] [place], [place] [phone] [facility] Partial Hospitalization and Outpatient [id number] [place], [phone] Substance Abuse resources provided included: [facility] Substance Abuse Self-Helpline ([facility]) ; [facility] [address] [facility]. [place] [address] ; [facility] [address] [facility] [address] ; [facility] [address] [facility] [address] ; [facility] [address] [facility] [address] ; [facility] [address] [facility] [address] ; [facility] [address] [facility] [address] ; [facility] Substance Abuse Helpline([facility])-[facility] ; [facility] Family [facility]ing ; [facility]; [facility] [place]; [facility] [place]; [facility] Nate Starks[place]; [facility] [place]; [facility] Panther Burn; [facility]; [facility], [facility]. [place]; Alcoholics Anonymous -SFV; Kx-Pcou-Curkwkp ; Marijuana Anonymous -[facility]V; Narcotics Anonymous www.na.org;"
--- NOTE | 2021-12-29 17:13 | NUR ---
SNUFF BOX FINISHER NOTE PT REMAINED STABLE THROUGHOUT SHIFT. PT CLEARED FOR D/C PER MD DUFF. ALERT AND ORIENTED X3. PT BREATHING EVEN AND UNLABORED ON RA. NO S/S OF RESPIRATORY DISTRESS. IV ACCESS ON LEFT WRIST REMOVED INTACT. DENIES ANY PAIN OR DISCOMFORT AT THIS TIME. PT VERBALLY CONFIRMED UNDERSTANDING OF MD DISCHARGE ORDERS. [facility] BE [facility] [place] [facility]. PT OK WITH DISCHARGE PLAN PER . PT STABLE UPON DISCHARGE. FAMILY (AMMY [phone]) NOTIFIED OF DISCHARGE
== END 2021-12-29 17:20 | disposition home or self-care (01) | DRG 194 ==
LOC: ER 13:43 → TELE1 20:22 → MEDSG1 12-28 22:04
PROVIDERS: ADMIT Nurse Practitioner Acute Care; ATTEND Student in an Organized Health Care Education/Training Program
DX: I13.0 Hypertensive heart and chronic kidney disease with heart failure and stage 1 through stage 4 chronic kidney disease, or unspecified chronic kidney disease (principal); N17.0 Acute kidney failure with tubular necrosis; I27.20 Pulmonary hypertension, unspecified; I31.3 Pericardial effusion (noninflammatory); F29 Unspecified psychosis not due to a substance or known physiological condition; J90 Pleural effusion, not elsewhere classified; I42.9 Cardiomyopathy, unspecified; I50.23 Acute on chronic systolic (congestive) heart failure; N18.9 Chronic kidney disease, unspecified; Z20.822 Contact with and (suspected) exposure to COVID-19; F17.200 Nicotine dependence, unspecified, uncomplicated; F14.90 Cocaine use, unspecified, uncomplicated; Z59.00 Homelessness unspecified; N50.89 Other specified disorders of the male genital organs; J98.11 Atelectasis
CPT/HCPCS: 36415; 71045-TC; 71250-TC; 76770-TC; 80048-TC; 80053-TC; 80076-TC; 80202-TC; 81001; 83735-TC; 83880; 84100-TC; 84443-TC; 85025-TC; 87040-TC; 87081-TC; 93307-TC; 93970-TC; C9803; G0378; J0696; J1644; J1940; J3370; J7040; J7050; J7060